=== PATIENT | male | born 1990 | race Caucasian/White ===

== ENCOUNTER 2017-04-16 05:33 | Inpatient (IN) | payer SELFPAY ==
[~2017-04-16 05:33] MED LIST: ceFAZolin SODIUM 1 GM VIAL IVPB ONE
--- NOTE | 2017-04-16 05:48 | PDOC ---
History of Present Illness - General History Source: Patient Exam Limitations: No Limitations - History of Present Illness Initial Comments: 04/16/17 05:56 The patient is a 26 year old male with a significant past medical history of constipation who presents to the ED with complaints of diarrhea, abdominal pain , and constipation. Patient reports multiple episodes of diarrhea 2 days ago when he left from work. He states he began to develop right upper and right lower quadrant pain that is worsened when laying down. Patient states he is unable to eat secondary to his abdominal pain. Patient states his diarrhea subsided and now he reports constipation, more than his baseline. He also reports chills and generalized malaise with present symptoms. Denies fevers or chills.Denies chest pain or shortness of breath. Denies dysuria or changes in urinary output. Denies any other symptoms. <Brandy Ribera - Last Filed: 04/16/17 05:56> <Britni Bui - Last Filed: 04/16/17 11:00> <Rosio Leslie - Last Filed: 04/16/17 11:38> - General History Source: Patient Exam Limitations: No Limitations <Malcolm Greenwood - Last Filed: 04/16/17 19:54> - General Chief Complaint: Pain Stated Complaint: ABD PAIN,CONSTIPATION Time Seen by Provider: 04/16/17 05:46 Past History <Brandy Ribera - Last Filed: 04/16/17 05:56> <Britni Bui - Last Filed: 04/16/17 11:00> <Rosio Leslie - Last Filed: 04/16/17 11:38> - Psycho/Social/Smoking Cessation Hx Suicidal Ideation: No Smoking History: Never smoked Have you smoked in the past 12 months: No Information on smoking cessation initiated: No Hx Alcohol Use: No Drug/Substance Use Hx: No <Malcolm Greenwood - Last Filed: 04/16/17 19:54> - Past Medical History Allergies/Adverse Reactions: Allergies Allergy/AdvReac Type Severity Reaction Status Date / Time No Known Allergies Allergy Verified 04/16/17 05:45 Home Medications: Ambulatory Orders NK [No Known Home Medication] 04/16/17 Review of Systems - Review of Systems Able to Perform ROS?: Yes Comments:: 04/16/17 05:56 CONSTITUTIONAL: No reported: Fever, Chills, Diaphoresis, Generalized Weakness, Malaise, Loss of Appetite HEENT: No reported: Rhinorrhea, Nasal Congestion, Throat Pain, Throat Swelling, Difficulty Swallowing, Mouth Swelling, Ear Pain, Eye Pain, Visual Changes CARDIOVASCULAR: No reported: Chest Pain, Syncope, Palpitations, Irregular Heart Rate, Lightheadedness, Peripheral Edema RESPIRATORY: No reported: Cough, Shortness of Breath, SOB with Exertion, Orthopnea, Wheezing , Stridor, Hemoptysis GASTROINTESTINAL:+ diarrhea, abdominal pain, constipation No reported: Abdominal Distension, Nausea, Vomiting,, Melena, Hematochezia GENITOURINARY: No reported: Dysuria, Frequency, Urgency, Hesitancy, Flank Pain, Genital Pain MUSCULOSKELETAL: No reported: Myalgia, Arthralgia, Joint Swelling, Back pain, Neck Pain SKIN: No reported: Rash, Itching, Pallor HEMEATOLOGIC/IMMUNOLOGIC: No reported: Easy Bleeding, Easy Bruising, Lymphadenopathy, Frequent infections ENDOCRINE: No reported: Unexplained Weight Gain, Unexplained Weight Loss, Heat Intolerance , Cold Intolerance NEUROLOGIC: No reported: Headache, Focal Weakness, Paresthesias, Vertigo, Lightheadedness, Unsteady Gait, Seizure, Mental Status Changes, Incontinence PSYCHIATRIC: No reported: Anxiety, Depression All Other Systems: Reviewed and Negative <Brandy Ribera - Last Filed: 04/16/17 05:56> *Physical Exam - Vital Signs Last Vital Signs Temp Pulse Resp BP Pulse Ox 98.5 F 66 14 154/106 99 04/16/17 05:45 04/16/17 05:45 04/16/17 05:45 04/16/17 05:45 04/16/17 05:45 - Physical Exam Comments: 04/16/17 05:56 GENERAL:+ moderate distress Well developed, well nourished. Awake and alert. HEENT: Normocephalic, atraumatic. PERRLA, EOMI. No conjunctival pallor. Sclera are non- icteric. Moist mucous membranes. Oropharynx is clear. NECK: Supple. Full ROM. No JVD. Carotid pulses 2+ and symmetric, without bruits. No thyromegaly. No lymphadenopathy. CARDIOVASCULAR: Regular rate and rhythm. No murmurs, rubs, or gallops. Distal pulses are 2+ and symmetric. PULMONARY: No evidence of respiratory distress. Lungs clear to auscultation bilaterally. No wheezing, rales or rhonchi. ABDOMINAL:+ tender in the right upper and lower quadrant. Soft. Non-distended. No rebound or guarding. No organomegaly. Normoactive bowel sounds. MUSCULOSKELETAL Normal range of motion at all joints. No bony deformities or tenderness. No CVA tenderness. EXTREMITIES: No cyanosis. No clubbing. No edema. No calf tenderness. SKIN: Warm and dry. Normal capillary refill. No rashes. No jaundice. NEUROLOGICAL: Alert, awake, appropriate. Cranial nerves 2-12 intact. No deficits to light touch and temperature in face, upper extremities and lower extremities. No motor deficits in the in face, upper extremities and lower extremities. Normoreflexic in the upper and lower extremities. Normal speech. Toes are down- going bilaterally. Gait is normal without ataxia. PSYCHIATRIC: Cooperative. Good eye contact. Appropriate mood and affect. <Brandy Ribera - Last Filed: 04/16/17 05:56> - Vital Signs Last Vital Signs Temp Pulse Resp BP Pulse Ox 98.5 F 66 14 154/106 99 04/16/17 05:45 04/16/17 05:45 04/16/17 05:45 04/16/17 05:45 04/16/17 06:30 <Britni Bui - Last Filed: 04/16/17 11:00> - Vital Signs Last Vital Signs Temp Pulse Resp BP Pulse Ox 98.5 F 66 14 154/106 99 04/16/17 05:45 04/16/17 05:45 04/16/17 05:45 04/16/17 05:45 04/16/17 06:30 <Rosio Leslie - Last Filed: 04/16/17 11:38> - Vital Signs Last Vital Signs Temp Pulse Resp BP Pulse Ox 98.5 F 66 14 154/106 99 04/16/17 05:45 04/16/17 05:45 04/16/17 05:45 04/16/17 05:45 04/16/17 05:45 <Malcolm Greenwood - Last Filed: 04/16/17 19:54> ED Treatment Course - LABORATORY CBC & Chemistry Diagram: 04/16/17 06:00 04/16/17 06:00 - ADDITIONAL ORDERS Additional order review: Laboratory Results 04/16/17 04/16/17 04/16/17 07:15 06:00 06:00 INR 1.00 Sodium 140 Potassium 3.6 Chloride 103 Carbon Dioxide 27 Anion Gap 10 BUN 10 Creatinine 0.9 Creat Clearance w eGFR > 60 Random Glucose 139 H Calcium 9.1 Magnesium 2.1 Total Bilirubin 1.2 H AST 18 ALT 41 Alkaline Phosphatase 79 Total Protein 7.5 Albumin 4.4 Total Amylase 53 Lipase 110 Urine Color Yellow Urine Appearance Clear Urine pH 5.0 Urine Protein Negative Urine Glucose (UA) Negative Urine Ketones 2+ H Urine Blood Negative Urine Nitrite Negative Urine Bilirubin Negative Urine Urobilinogen Negative Ur Leukocyte Esterase Negative 04/16/17 06:00 RBC 5.42 MCV 91.4 MCHC 34.6 RDW 12.3 MPV 8.8 Neutrophils % 88.1 H Lymphocytes % 7.6 L Monocytes % 3.9 Eosinophils % 0.1 Basophils % 0.3 - RADIOLOGY Radiograph Interpretation: 04/16/17 11:04 CT w/out contrast - Abdomen & pelvis Impression: Findings consistent with acute appendicitis without abscess formation. There is no evidence of small bowel obstruction. Reported by: Dr. Emeka Mendoza Case discussed with Dr. Rosales. - Medications Given in the ED: ED Medications Discontinued Medications Generic Name Dose Route Start Last Admin Trade Name Freq PRN Reason Stop Dose Admin Sodium Chloride 1,000 mls @ 1,000 mls/hr 04/16/17 05:49 04/16/17 06:22 Normal Saline - IV 04/16/17 06:48 1,000 mls/hr ASDIR STA Administration Pantoprazole Sodium 40 mg/ 100 mls @ 200 mls/hr 04/16/17 05:49 04/16/17 06:22 Sodium Chloride IVPB 04/16/17 06:18 200 mls/hr ONCE ONE Administration Ketorolac Tromethamine 30 mg 04/16/17 05:49 04/16/17 06:22 Toradol Injection - IVPUSH 04/16/17 05:50 30 mg ONCE ONE Administration Morphine Sulfate 2 mg 04/16/17 06:36 04/16/17 06:46 Morphine Injection - IVPUSH 04/16/17 06:37 2 mg ONCE ONE Administration Ondansetron HCl 4 mg 04/16/17 05:49 04/16/17 06:23 Zofran Injection IVPUSH 04/16/17 05:50 4 mg ONCE STA Administration Ondansetron HCl 4 mg 04/16/17 06:36 04/16/17 06:46 Zofran Injection IVPUSH 04/16/17 06:37 4 mg ONCE STA Administration <HaoBritni - Last Filed: 04/16/17 11:00> - LABORATORY CBC & Chemistry Diagram: 04/16/17 06:00 04/16/17 06:00 - ADDITIONAL ORDERS Additional order review: Laboratory Results 04/16/17 04/16/17 04/16/17 07:15 06:00 06:00 INR 1.00 Sodium 140 Potassium 3.6 Chloride 103 Carbon Dioxide 27 Anion Gap 10 BUN 10 Creatinine 0.9 Creat Clearance w eGFR > 60 Random Glucose 139 H Calcium 9.1 Magnesium 2.1 Total Bilirubin 1.2 H AST 18 ALT 41 Alkaline Phosphatase 79 Total Protein 7.5 Albumin 4.4 Total Amylase 53 Lipase 110 Urine Color Yellow Urine Appearance Clear Urine pH 5.0 Ur Specific [place] 1.025 Urine Protein Negative Urine Glucose (UA) Negative Urine Ketones 2+ H Urine Blood Negative Urine Nitrite Negative Urine Bilirubin Negative Urine Urobilinogen Negative Ur Leukocyte Esterase Negative 04/16/17 06:00 RBC 5.42 MCV 91.4 MCHC 34.6 RDW 12.3 MPV 8.8 Neutrophils % 88.1 H Lymphocytes % 7.6 L Monocytes % 3.9 Eosinophils % 0.1 Basophils % 0.3 - Medications Given in the ED: ED Medications Discontinued Medications Generic Name Dose Route Start Last Admin Trade Name Iliaq PRN Reason Stop Dose Admin Sodium Chloride 1,000 mls @ 1,000 mls/hr 04/16/17 05:49 04/16/17 06:22 Normal Saline - IV 04/16/17 06:48 1,000 mls/hr ASDIR STA Administration Pantoprazole Sodium 40 mg/ 100 mls @ 200 mls/hr 04/16/17 05:49 04/16/17 06:22 Sodium Chloride IVPB 04/16/17 06:18 200 mls/hr ONCE ONE Administration Ketorolac Tromethamine 30 mg 04/16/17 05:49 04/16/17 06:22 Toradol Injection - IVPUSH 04/16/17 05:50 30 mg ONCE ONE Administration Morphine Sulfate 2 mg 04/16/17 06:36 04/16/17 06:46 Morphine Injection - IVPUSH 04/16/17 06:37 2 mg ONCE ONE Administration Ondansetron HCl 4 mg 04/16/17 05:49 04/16/17 06:23 Zofran Injection IVPUSH 04/16/17 05:50 4 mg ONCE STA Administration Ondansetron HCl 4 mg 04/16/17 06:36 04/16/17 06:46 Zofran Injection IVPUSH 04/16/17 06:37 4 mg ONCE STA Administration <Rosio Leslie - Last Filed: 04/16/17 11:38> - LABORATORY CBC & Chemistry Diagram: 04/16/17 06:00 04/16/17 06:00 <Malcolm Greenwood - Last Filed: 04/16/17 19:54> Medical Decision Making - Medical Decision Making 04/16/17 19:54 Dr. Greenwood: The scribe's documentation has been prepared under my direction and personally reviewed by me in its entirery. I confirm that the note above accurately reflects all work, treatment, procedures, and medical decision making performed by me. <Malcolm Greenwood - Last Filed: 04/16/17 19:54> *DC/Admit/Observation/Transfer - Attestations Scribe Attestion: 04/16/17 05:56 Documentation prepared by Brandy Ribera, acting as medical records custodian for Malcolm Greenwood MD <Brandy Ribera - Last Filed: 04/16/17 05:56> <Britni Bui - Last Filed: 04/16/17 11:00> - Discharge Dispostion Decision to Admit order Date/Time: Decision to Admit Order Category Date Time Status Decision to Admit to Hospital Routine Admission 04/16/17 11:26 Active - Attestations Physician Attestion: 04/16/17 11:39 I, Dr. Rosio Leslie MD, attest that this document has been prepared under my direction and personally reviewed by me in its entirety. I further attest, that it accurately reflects all work, treatment, procedures and medical decision -making performed by me. <Rosio Leslie - Last Filed: 04/16/17 11:38> <Malcolm Greenwood - Last Filed: 04/16/17 19:54> Diagnosis at time of Disposition: Appendicitis Qualifiers: Appendicitis type: acute appendicitis Acute appendicitis type: other Qualified Code(s): K35.89 - Other acute appendicitis - Discharge Dispostion Condition at time of disposition: Good
[2017-04-16] MEDS ORDERED: KETOROLAC TROMETHAMINE 30 MG/1 ML VIAL IVPUSH ONE (05:49)
[2017-04-16] MEDS ORDERED: PANTOPRAZOLE SODIUM 40 MG in SODIUM CHLORIDE 100 ML IVPB ONE (05:49)
[2017-04-16] MEDS ORDERED: ONDANSETRON 4 MG/2 ML VIAL IVPUSH STA ×2 (05:49→06:36)
[2017-04-16] MEDS ORDERED: SODIUM CHLORIDE 1,000 ML IV STA (05:49)
[2017-04-16] MEDS ORDERED: ONDANSETRON 4 MG/2 ML VIAL ONE ×3 (06:03→11:36)
[2017-04-16] MEDS ORDERED: PANTOPRAZOLE SODIUM 100 ML IVPB ONE (06:03)
[2017-04-16] MEDS ORDERED: KETOROLAC TROMETHAMINE 30 MG/1 ML VIAL ONE ×2 (06:03→15:19)
[2017-04-16 06:12] LABS: BASOPHIL 0.3 % (0-2.0); EOSINOPHIL 0.1 % (0-4.5); MCH 31.6 pg (25.7-33.7); MCHC 34.6 g/dl (32.0-35.9); MEAN CELL VOLUME 91.4 fl (80-96); MEAN PLT VOLUME 8.8 fl (7.5-11.1); NEUTROPHILS 88.1 % (42.8-82.8); PLATELET COUNT 205 K/MM3 (134-434); RDW 12.3 % (11.9-15.9)
[2017-04-16 06:33] LABS: ALBUMIN 4.4 g/dl (3.4-5.0); AMYLASE 53 U/L (25-115); ANION GAP 10 (8-16); BILIRUBIN,TOTAL 1.2 mg/dL (0.2-1.0); CALCIUM 9.1 mg/dL (8.5-10.1); CO2 27 mmol/L (21-32); CREATININE 0.9 mg/dL (0.7-1.3); GLUCOSE,RANDOM 139 mg/dL (74-106); MAGNESIUM 2.1 mg/dL (1.8-2.4); SGOT/AST 18 U/L (15-37); SGPT/ALT 41 U/L (12-78); TOT PROT 7.5 g/dl (6.4-8.2)
[2017-04-16 06:34] LABS: ALK PHOS 79 U/L (45-117)
[2017-04-16] MEDS ORDERED: morphine CARPU-JECT 2 MG/1 ML DISP.SYRIN IVPUSH ONE (06:36)
[2017-04-16] MEDS ORDERED: morphine CARPU-JECT 4 MG/1 ML DISP.SYRIN ONE ×2 (06:38→11:35)
[2017-04-16 07:37] LABS: URINE APPEARANCE CLEAR; URINE BILIRUBIN NEGATIVE (NEGATIVE); URINE BLOOD NEGATIVE (NEGATIVE); URINE COLOR YELLOW; URINE GLUCOSE (UA) NEGATIVE (NEGATIVE); URINE KETONE 2+ (NEGATIVE); URINE LEUK ESTERASE NEGATIVE (NEGATIVE); URINE NITRITE NEGATIVE (NEGATIVE); URINE PROTEIN NEGATIVE (NEGATIVE); URINE UROBILINOGEN NEGATIVE mg/dL (0.2-1.0)
[2017-04-16] MEDS ORDERED: PIPERACILLIN/TAZOB 4.5 GM/100 ML PRE-DOCKED IVPB ONE ×2 (10:58→13:42)
[2017-04-16] MEDS ORDERED: morphine CARPU-JECT 4 MG/1 ML DISP.SYRIN IVPUSH ONE (10:58)
[2017-04-16] MEDS ORDERED: ONDANSETRON 4 MG/2 ML VIAL IVPUSH ONE (10:59)
[2017-04-16] MEDS ORDERED: SODIUM CHLORIDE 0.9% 500 ML INFUS.BAG IV ONE (11:06)
--- NOTE | 2017-04-16 11:26 | PDOC ---
*Physical Exam - Vital Signs Last Vital Signs Temp Pulse Resp BP Pulse Ox 98.5 F 66 14 154/106 99 04/16/17 05:45 04/16/17 05:45 04/16/17 05:45 04/16/17 05:45 04/16/17 06:30 ED Treatment Course - LABORATORY CBC & Chemistry Diagram: 04/16/17 06:00 04/16/17 06:00 - ADDITIONAL ORDERS Additional order review: Laboratory Results 04/16/17 04/16/17 04/16/17 07:15 06:00 06:00 INR 1.00 Sodium 140 Potassium 3.6 Chloride 103 Carbon Dioxide 27 Anion Gap 10 BUN 10 Creatinine 0.9 Creat Clearance w eGFR > 60 Random Glucose 139 H Calcium 9.1 Magnesium 2.1 Total Bilirubin 1.2 H AST 18 ALT 41 Alkaline Phosphatase 79 Total Protein 7.5 Albumin 4.4 Total Amylase 53 Lipase 110 Urine Color Yellow Urine Appearance Clear Urine pH 5.0 Ur Specific [place] 1.025 Urine Protein Negative Urine Glucose (UA) Negative Urine Ketones 2+ H Urine Blood Negative Urine Nitrite Negative Urine Bilirubin Negative Urine Urobilinogen Negative Ur Leukocyte Esterase Negative 04/16/17 06:00 RBC 5.42 MCV 91.4 MCHC 34.6 RDW 12.3 MPV 8.8 Neutrophils % 88.1 H Lymphocytes % 7.6 L Monocytes % 3.9 Eosinophils % 0.1 Basophils % 0.3 - Medications Given in the ED: ED Medications Discontinued Medications Generic Name Dose Route Start Last Admin Trade Name Freq PRN Reason Stop Dose Admin Sodium Chloride 1,000 mls @ 1,000 mls/hr 04/16/17 05:49 04/16/17 06:22 Normal Saline - IV 04/16/17 06:48 1,000 mls/hr ASDIR STA Administration Pantoprazole Sodium 40 mg/ 100 mls @ 200 mls/hr 04/16/17 05:49 04/16/17 06:22 Sodium Chloride IVPB 04/16/17 06:18 200 mls/hr ONCE ONE Administration Ketorolac Tromethamine 30 mg 04/16/17 05:49 04/16/17 06:22 Toradol Injection - IVPUSH 04/16/17 05:50 30 mg ONCE ONE Administration Morphine Sulfate 2 mg 04/16/17 06:36 04/16/17 06:46 Morphine Injection - IVPUSH 04/16/17 06:37 2 mg ONCE ONE Administration Ondansetron HCl 4 mg 04/16/17 05:49 04/16/17 06:23 Zofran Injection IVPUSH 04/16/17 05:50 4 mg ONCE STA Administration Ondansetron HCl 4 mg 04/16/17 06:36 04/16/17 06:46 Zofran Injection IVPUSH 04/16/17 06:37 4 mg ONCE STA Administration Medical Decision Making - Medical Decision Making 04/16/17 11:23 Patient signed out to me by overnight Dr. Greenwood pending CT scan of the abdomen for abdominal pain. CT scan with acute uncomplicated appendicitis. I spoke with Dr. Michaud from surgery who will likely take the patient to the OR today. I also ordered a dose of Zosyn and fluids. Patient is NPO. I discussed the CT scan findings with the patient and the likelihood that he would go to the operating room today for this finding. I answered all his questions. I also ordered another round of pain medications and antiemetics given his recurring pain and nausea. Pt admitted to the hospitalist *DC/Admit/Observation/Transfer Diagnosis at time of Disposition: Appendicitis Qualifiers: Appendicitis type: acute appendicitis Acute appendicitis type: other Qualified Code(s): K35.89 - Other acute appendicitis - Discharge Dispostion Condition at time of disposition: Stable Admit: Yes - Attestations Physician Attestion: 04/16/17 11:26 I, Dr. Rosio Leslie MD, attest that this document has been prepared under my direction and personally reviewed by me in its entirety. I further attest, that it accurately reflects all work, treatment, procedures and medical decision -making performed by me.
[2017-04-16] MEDS ORDERED: PIPERACILLIN/TAZOB 4.5 GM 100 ML IVPB ONE (11:35)
[2017-04-16] MEDS ORDERED: morphine CARPU-JECT 4 MG/1 ML DISP.SYRIN IVPUSH PRN ×4 (12:03→16:37)
[2017-04-16] MEDS ORDERED: ONDANSETRON 4 MG/2 ML VIAL IVPB PRN ×2 (12:04→16:37)
[2017-04-16] MEDS ORDERED: SODIUM CHLORIDE 1,000 ML IV SCH (12:15)
--- NOTE | 2017-04-16 12:47 | HP ---
Admitting History and Physical - Admission Chief Complaint: RLQ pain, vomiting History of Present Illness: 26yo healthy M began experiencing generalized abdominal discomfort 2 days ago with diarrhea and thought it was a virus. Stayed home from work yesterday because he wasn't feeling better. Hungry last night but ate lightly (cold cut sandwich and chicken soup), but after dinner began having significant RLQ pain and vomiting. That was his last PO; multiple episodes of emesis overnight, ultimately prompting ER visit. He had subjective fever/chills yest into last night. Stools were initially loose, then stopped yesterday. Feels like he has gas and cannot get it out. Pain has been significant, mainly RLQ and into groin/ pelvic area. He still has some nausea. In ER, wbc is 16, he is afebrile but hypertensive. CT shows enlarged, inflamed appendix down into pelvis without abscess or free air. He is admitted 23H for acute appendicitis with localized peritonitis. He is agreeable to surgery. ER has given fluids and pain meds. Antibiotic will be given in OR. History Source: Patient Limitations to Obtaining History: No Limitations - Past Medical History Additional Past Medical History: NONE - Past Surgical History Past Surgical History: Yes: Hernia Repair (as baby) - Smoking History Smoking history: Current some day smoker Have you smoked in the past 12 months: Yes Aproximately how many cigarettes per day: 0 (smokes on weekends when he drinks) - Alcohol/Substance Use Hx Alcohol Use: Yes (weekends, usually one day, 4-5 drinks) Number of Drinks Daily: 1 History of Substance Use: reports: Marijuana Date of Last Use: 04/15/17 (daily MJ) Home Medications - Allergies Allergies/Adverse Reactions: Allergies Allergy/AdvReac Type Severity Reaction Status Date / Time No Known Allergies Allergy Verified 04/16/17 05:45 - Home Medications Home Medications: Ambulatory Orders NK [No Known Home Medication] 04/16/17 Family Disease History - Family Disease History Family History: Unremarkable Review of Systems - Review of Systems Constitutional: reports: Chills, Fever Eyes: denies: Blurred Vision, Recent Change in Vision HENT: denies: Difficult Swallowing, Nasal Congestion, Throat Pain Neck: denies: Swollen Glands, Tenderness Cardiovascular: denies: Chest Pain, Palpitations Respiratory: denies: Cough, SOB Gastrointestinal: reports: Abdominal Pain (with hpi), Constipation (last day), Diarrhea (2d ago), Nausea (with hpi), Vomiting (with hpi) Genitourinary: denies: Burning, Dysuria Musculoskeletal: reports: Back Pain (upper, 2-3 years since work incident). denies: Joint Pain Integumentary: denies: Change in Color, Rash Neurological: denies: Dizziness, Headache Physical Examination Vital Signs: Vital Signs Temperature 98.5 F 04/16/17 05:45 Pulse Rate 66 04/16/17 05:45 Respiratory Rate 14 04/16/17 05:45 Blood Pressure 154/106 04/16/17 05:45 O2 Sat by Pulse Oximetry (%) 99 04/16/17 06:30 Constitutional: Yes: Well Nourished, Calm, Mild Distress (secondary to pain) Eyes: Yes: Conjunctiva Clear, EOM Intact HENT: Yes: Atraumatic, Normocephalic Cardiovascular: Yes: Tachycardia (mild). No: Pulse Irregular Respiratory: Yes: Regular, CTA Bilaterally Gastrointestinal: Yes: Normal Bowel Sounds, Soft, Tenderness (mainly RLQ/ suprapubic, also RUQ, LLQ with referred tenderness to RLQ/suprapubic areas, some voluntary guarding in RLQ, no rebound). No: Distention ...Rectal Exam: Yes: Deferred Renal/: No: CVA Tenderness - Left, CVA Tenderness - Right Musculoskeletal: No: Joint Stiffness, Joint Swelling Extremities: No: Cool, Cyanosis Edema: No Peripheral Pulses WNL: Yes Integumentary: No: Jaundice, Rash Neurological: Yes: Alert, Oriented. No: Unsteady Gait Psychiatric: Yes: Alert, Oriented Labs: CBC, BMP 04/16/17 06:00 04/16/17 06:00 CMP Sodium 140 mmol/L (136-145) 04/16/17 06:00 Potassium 3.6 mmol/L (3.5-5.1) 04/16/17 06:00 Chloride 103 mmol/L (98-107) 04/16/17 06:00 Carbon Dioxide 27 mmol/L (21-32) 04/16/17 06:00 Anion Gap 10 (8-16) 04/16/17 06:00 BUN 10 mg/dL (7-18) 04/16/17 06:00 Creatinine 0.9 mg/dL (0.7-1.3) 04/16/17 06:00 Creat Clearance w eGFR > 60 (>60) 04/16/17 06:00 Random Glucose 139 mg/dL (74-106) H 04/16/17 06:00 Calcium 9.1 mg/dL (8.5-10.1) 04/16/17 06:00 Magnesium 2.1 mg/dL (1.8-2.4) 04/16/17 06:00 Total Bilirubin 1.2 mg/dL (0.2-1.0) H 04/16/17 06:00 AST 18 U/L (15-37) 04/16/17 06:00 ALT 41 U/L (12-78) 04/16/17 06:00 Alkaline Phosphatase 79 U/L (45-117) 04/16/17 06:00 Total Protein 7.5 g/dl (6.4-8.2) 04/16/17 06:00 Albumin 4.4 g/dl (3.4-5.0) 04/16/17 06:00 Total Amylase 53 U/L (25-115) 04/16/17 06:00 Lipase 110 U/L (73-393) 04/16/17 06:00 Urine Test Results Urine Color Yellow 04/16/17 07:15 Urine Appearance Clear 04/16/17 07:15 Urine pH 5.0 (5.0-8.0) 04/16/17 07:15 Ur Specific [place] 1.025 (1.005-1.025) 04/16/17 07:15 Urine Protein Negative (NEGATIVE) 04/16/17 07:15 Urine Glucose (UA) Negative (NEGATIVE) 04/16/17 07:15 Urine Ketones 2+ (NEGATIVE) H 04/16/17 07:15 Urine Blood Negative (NEGATIVE) 04/16/17 07:15 Urine Nitrite Negative (NEGATIVE) 04/16/17 07:15 Urine Bilirubin Negative (NEGATIVE) 04/16/17 07:15 Ur Leukocyte Esterase Negative (NEGATIVE) 04/16/17 07:15 Imaging - Results Cat Scan: Report Reviewed (acute appendicitis), Image Reviewed Problem List - Problems (1) Acute appendicitis with localized peritonitis Assessment/Plan: admitted 23H/obs NPO/IVF to OR for lap poss open appendectomy - discussed R/B/A of same with patient including but not limited to bleeding, infection, injury to intraabdominal structures, staple-line leak, intraabdominal abscess; alternatives including antibiotics, no surgery, risk of sepsis and need for surgery - pt wishes to proceed with operation perioperative antibiotics DVT prophylaxis anticipate resuming po postop prn pain meds - anticipate alternating Tylenol with ibuprofen, possible Tyl/ narcotic combo for breakthrough informed consent signed and on chart Code(s): K35.3 - ACUTE APPENDICITIS WITH LOCALIZED PERITONITIS
[2017-04-16] MEDS ORDERED: LIDOCAINE HCL 1%, 10 MG/ML (20ML VIAL) ONE (12:56)
[2017-04-16] MEDS ORDERED: BUPIVACAINE HCL/PF 0.5% (5MG/ML) 10 ML VIAL ONE (12:56)
[2017-04-16] MEDS ORDERED: LIDOCAINE HCL/PF 2% SDV 5ML VIAL ONE (13:40)
[2017-04-16] MEDS ORDERED: PROPOFOL 20 ML ONE (13:40)
[2017-04-16] MEDS ORDERED: SUCCINYLCHOLINE CHLORIDE 200 MG/10 ML VIAL ONE (13:41)
[2017-04-16] MEDS ORDERED: BUPIVACAINE HCL/PF 0.5% (5MG/ML) 10 ML VIAL IJ ONE ×2 (14:19→15:26)
[2017-04-16 14:35] VITALS: BMI 28.5
[2017-04-16] MEDS ORDERED: DEXAMETHASONE SOD PHOSPHATE 4 MG/1 ML VIAL ONE (15:19)
[2017-04-16] MEDS ORDERED: MIDAZOLAM HCL 2 MG/2 ML SINGLE DOSE VIAL ONE (15:19)
[2017-04-16] MEDS ORDERED: NEOSTIGMINE METHYLSULFATE 0.5 MG/ML - 10 ML MDV ONE (15:19)
[2017-04-16] MEDS ORDERED: GLYCOPYRROLATE 0.2 MG/1 ML VIAL ONE ×2 (15:19→15:20)
[2017-04-16] MEDS ORDERED: ACETAMINOPHEN 1000 MG/100 ML VIAL (NON FORMULARY) IVPB ONE (15:50)
[2017-04-16] MEDS ORDERED: ACETAMINOPHEN INJECTION 100 ML IVPB ONE (15:51)
[2017-04-16] MEDS ORDERED: LACTATED RINGERS SOLUTION 1,000 ML IV SCH (16:00)
--- NOTE | 2017-04-16 16:24 | OP ---
Operative Note - Note: Operative Date: 04/16/17 Pre-Operative Diagnosis: acute appendicitis with localized peritonitis Operation: laparoscopic appendectomy Findings: enlarged, inflamed appendix Post-Operative Diagnosis: Same as Pre-op Surgeon: Chace Rosales Anesthesiologist/QUALITY ASSURANCE TEST PROGRAM MANAGER: Ras Perez Anesthesia: General, Local (20ml 0.5% marcaine) Specimens Removed: appendix to pathology Estimated Blood Loss (mls): 5 Drains & Tubes with Location: Lr removed at end of case Drains, Volume Out (mls): 200 (UOP) Fluid Volume Replaced (mls): 1,500 (crystalloid) Operative Report Dictated: Yes
[2017-04-16] MEDS: LACTATED RINGERS SOLUTION 1,000 ML IV SCH (16:45)
[2017-04-16] MEDS ORDERED: oxyCODONE HCL 5 MG TABLET PO PRN (17:04)
[2017-04-16] MEDS ORDERED: ACETAMINOPHEN 325 MG TABLET (FP) PO PRN ×2 (17:04→22:00)
[2017-04-16] MEDS ORDERED: IBUPROFEN 600 MG TABLET (FP) PO PRN (19:00)
[2017-04-16] MEDS ORDERED: PIPERACILLIN/TAZOBACTAM 4.5 GM VIAL IVPB ONE (20:30)
[2017-04-16] MEDS ORDERED: DEXTROSE 5%-WATER 100 ML IVPB ONE (20:30)
[2017-04-16] MEDS: DOCUSATE SODIUM 100 MG CAPSULE (FP) PO SCH (21:27)
[2017-04-16] MEDS ORDERED: PIPERACILLIN/TAZOB 4.5 GM 4.5 GM in DEXTROSE 5%-WATER - 100 ML IVPB ONE (22:00)
[2017-04-16] MEDS ORDERED: DOCUSATE SODIUM 100 MG CAPSULE (FP) PO SCH (22:00)
[2017-04-16] MEDS ORDERED: PIPERACILLIN/TAZOB 4.5 GM 4.5 GM in DEXTROSE 5%-WATER 100 ML IVPB ONE (22:00)
[2017-04-17] MEDS: LACTATED RINGERS SOLUTION 1,000 ML IV SCH (00:20)
[2017-04-17] MEDS: IBUPROFEN 600 MG TABLET (FP) PO PRN ×2 (10:02→17:08)
[2017-04-17] MEDS: ACETAMINOPHEN 325 MG TABLET (FP) PO PRN (10:02)
[2017-04-17] MEDS: DOCUSATE SODIUM 100 MG CAPSULE (FP) PO SCH ×2 (10:02→21:58)
--- NOTE | 2017-04-17 10:46 | PN ---
Progress Note, Physician Chief Complaint: RLQ pain History of Present Illness: POD1 s/p lap appendectomy, feeling better than on admission. Seen and examined in bed. RLQ pain is gone, now with some incisional pain and LLQ pain. Passing flatus but no BM yet. Tolerating regular diet, fluids off. No nausea. Ambulating , voiding. On oral pain meds. Right now, does not feel great, feverish and with some LLQ discomfort, but just had pain meds. Spiked temp of 101.7 an hour ago. Using IS with good effort (1750 consistently). - Current Medication List Current Medications: Active Medications Acetaminophen (Tylenol -) 650 mg PO Q6H PRN PRN Reason: FEVER OR PAIN Last Admin: 04/17/17 10:02 Dose: 650 mg Acetaminophen (Tylenol -) 325 mg PO Q6H PRN PRN Reason: FEVER OR PAIN Docusate Sodium (Colace -) 100 mg PO BID NITISH Last Admin: 04/17/17 10:02 Dose: 100 mg Ibuprofen (Motrin -) 600 mg PO Q6H PRN PRN Reason: PAIN Last Admin: 04/17/17 10:02 Dose: 600 mg Ondansetron HCl (Zofran Injection) 4 mg IVPB Q4H PRN PRN Reason: NAUSEA AND/OR VOMITING Last Admin: 04/16/17 18:35 Dose: 4 mg Oxycodone HCl (Roxicodone -) 5 mg PO Q6H PRN Last Admin: 04/16/17 22:32 Dose: 5 mg - Objective Vital Signs: Vital Signs Temperature 98.4 F 04/17/17 06:15 Pulse Rate 105 H 04/17/17 06:15 Respiratory Rate 18 04/17/17 06:15 Blood Pressure 110/61 04/17/17 06:15 O2 Sat by Pulse Oximetry (%) 96 04/16/17 21:00 Last Vital Signs Temp Pulse Resp BP Pulse Ox 101.7 F H 109 H 20 139/93 96 04/17/17 09:40 04/17/17 09:40 04/17/17 09:40 04/17/17 09:40 04/16/17 21:00 Constitutional: Yes: Well Nourished, No Distress, Calm, Other (warm) Cardiovascular: Yes: Tachycardia. No: Pulse Irregular Respiratory: Yes: Regular, CTA Bilaterally Gastrointestinal: Yes: Normal Bowel Sounds, Soft, Distention (mild), Tenderness (mild LLQ and incisional, no R/G) Extremities: Yes: Other (warm). No: Cyanosis Integumentary: Yes: Incision (x3). No: Rash Wound/Incision: Yes: Steri Strips (under dressings), Dressing Dry and Intact (x3 , clean, no staining) Neurological: Yes: Alert, Oriented Labs: no new labs Problem List - Problems (1) Acute appendicitis with localized peritonitis Assessment/Plan: POD1 s/p lap appy doing well overall ambulating, voiding, tolerating diet, on oral pain meds spiked temp less than 24H postop will keep until 24H afebrile (<101) - convert to inpatient admission just got Tylenol if spikes again >101, will get blood cultures, CXR and restart abx will repeat cbc in am otherwise encouraged OOB/ambulation/IS/pulmonary toilet Code(s): K35.3 - ACUTE APPENDICITIS WITH LOCALIZED PERITONITIS
[2017-04-17] MEDS ORDERED: ONDANSETRON *ODT* 4 MG TABLET SL PRN (17:04)
[2017-04-17] MEDS ORDERED: PT OWN MED DRAWER 7, Y5N ONE (22:38)
[2017-04-18] MEDS: ACETAMINOPHEN 325 MG TABLET (FP) PO PRN (00:08)
[2017-04-18 08:23] VITALS: BP 127/74; PULSE 85; TEMP 97.9
--- NOTE | 2017-04-18 09:44 | DS ---
Physical Examination Vital Signs: Vital Signs Temperature 97.9 F 04/18/17 08:15 Pulse Rate 85 04/18/17 08:15 Respiratory Rate 18 04/18/17 08:15 Blood Pressure 127/74 04/18/17 08:15 O2 Sat by Pulse Oximetry (%) 99 04/17/17 21:00 temp has been normal since spike just over 24H ago Findings/Remarks: Pt seen and examined in room, eating breakfast. C/O some heartburn and mild nausea this am on waking up. Had loose BM this am. Used Tylenol once today since yesterday. Pain is minimal. No fevers since yesterday morning's spike. Ambulating and using IS. Time spent on discharge: 35 minutes Constitutional: Yes: Well Nourished, No Distress, Calm Cardiovascular: Yes: Regular Rate and Rhythm. No: Murmur Respiratory: Yes: Regular, CTA Bilaterally Gastrointestinal: Yes: Normal Bowel Sounds, Soft, Tenderness (mild RLQ ("feels like gas"), mild incisional, no R/G). No: Distention Extremities: Yes: Other (peripheral IV out). No: Cool, Cyanosis Integumentary: Yes: Incision (x3), Other (small superficial open skin spot from tegaderm at LLQ site laterally) Wound/Incision: Yes: Well Approximated, Steri Strips (c/d/i, left open to air), Dressing Dry and Intact (x3), Dressing Removed (x3), Other (small superficial denuded skin spot lateral to LLQ site). No: Reddened Neurological: Yes: Alert, Oriented Discharge Summary Reason For Visit: acute appendicitis with localized peritonitis Current Active Problems Acute appendicitis with localized peritonitis (Acute) Procedures: Principal: laparoscopic appendectomy Hospital Course: 26yo healthy M admitted with 2 days of RLQ pain associated with diarrhea and vomiting, wbc 16 and acute appendicitis on CT. He was taken to the OR for laparoscopic appendectomy with findings of an enlarged, inflamed appendix, and has done well postop. He received two doses of perioperative Zosyn. He spiked a temp of 101.7 about 16H postop, but has been afebrile since. He is tolerating diet, ambulating, voiding, had BMs, and pain is controlled with oral pain meds, nonnarcotic today. He is discharged home with lifting restrictions to follow up in 2 weeks. Condition: Good - Instructions Diet, Activity, Other Instructions: Postoperative instructions: You had a laparoscopic appendectomy on 04/16/[address] Chace Rosales of [facility]. Resume your usual activities gradually, but no heavy exertion or lifting more than 10-15 pounds for 1 month. Sticky tapes on the incisions will fall off by themselves. You may shower daily, just pat the incision areas dry. Eat lightly at first, but advance to your usual diet as tolerated. Use bacitracin ointment and a band-aid on the small open skin spot on your abdomen until it heals over. For pain, use extra-strength Tylenol (1-2 tabs) and/or ibuprofen (400-600mg) every 6 hours as needed; it is ok to alternate every 3 hours between the two. Do not take more than 3000mg of acetaminophen in a day. Take medications as prescribed or indicated on the labeling. Call Dr. Rosales's office at [phone] for your postop appointment (Friday ~ 2 weeks after surgery). Call Dr. Rosales if you have: - increasing pain not responsive to pain medication - fever of 101F or higher - vomiting - unusual or increasing bleeding or drainage from wounds - increasing redness or swelling at wound sites - inability to urinate Also, see your PMD within a couple of weeks. Disposition: HOME - Home Medications Comprehensive Discharge Medication List: Ambulatory Orders NK [No Known Home Medication] 04/16/17 Tylenol 500mg 1-2 tabs every 6 hrs as needed for pain Ibuprofen 200mg 1-3 tabs every 6 hrs as needed for pain (over the counter)
[2017-04-18] MEDS ORDERED: RANITIDINE HCL 150 MG TABLET (FP) PO STA (09:46)
[2017-04-18] MEDS: DOCUSATE SODIUM 100 MG CAPSULE (FP) PO SCH (09:58)
[2017-04-18] MEDS ORDERED: BACITRACIN 0.9 GM PACKET TP ONE (10:30)
--- NOTE | 2017-04-18 11:56 | OP ---
DATE OF OPERATION: 04/16/2017 PREOPERATIVE DIAGNOSIS: Acute appendicitis with localized peritonitis. POSTOPERATIVE DIAGNOSIS: Acute appendicitis with localized peritonitis. PROCEDURE: Laparoscopic appendectomy. SURGEON: Chace Rosales MD ANESTHESIA: General endotracheal and local, 20 mL of 0.5% Marcaine. ESTIMATED BLOOD LOSS: 5 mL FLUIDS: 1500 mL of crystalloid. URINE OUTPUT: 200 mL SPECIMEN: Appendix to Pathology. FINDINGS: An enlarged and inflamed appendix. DISPOSITION: Stable and extubated to PACU. INDICATIONS FOR PROCEDURE: The patient is a 26-year-old healthy male who presented with 2 days of generalized abdominal discomfort associated with diarrhea initially and some element of anorexia, which the night before presentation became significant right lower quadrant pain associated with vomiting. Multiple episodes of emesis were experienced at home, prompting an emergency room visit. In the emergency room, his white count was 16, and a CAT scan showed an enlarged, inflamed appendix directed downward into the pelvis, without any abscess or free air. His exam was consistent with acute appendicitis with localized peritonitis. Risks, benefits, and alternatives of laparoscopic, possible open appendectomy were discussed with the patient including, but not limited to, bleeding, infection, injury to intraabdominal structures, staple line leak, and intraabdominal abscess. The patient has signed informed consent for the same and is brought to the operating room for surgery now. OPERATIVE TECHNIQUE: The patient is brought to the operating room and laid supine on the operating table. Sequential compression devices are applied to bilateral lower extremities, and Zosyn is given as preoperative antibiotic. After induction and intubation by Anesthesia, a Lr catheter is placed in the patient's bladder, which is removed at the end of the case, and his abdomen is clipped of hair, prepped and draped in sterile fashion. A small infraumbilical midline incision is made with a scalpel and carried into subcutaneous tissues with electrocautery until the abdominal wall fascia is identified, scored, and elevated with Eddie clamps. The peritoneum is entered bluntly with the tip of a clamp, and fingertip is used to ensure entry into the peritoneal cavity and the absence of any underlying adhesions. A stay suture of 0 Vicryl is then placed in figure-of-8 fashion in the fascia for later closure, and the 12-mm Jessica trocar inserted directly into the abdominal cavity and secured in place with the balloon. The abdomen was insufflated with carbon dioxide and laparoscope inserted to inspect the abdominal cavity. The patient was placed in Trendelenburg position and ultimately planed with the right side somewhat upward. Two additional 5-mm ports were placed in the left lower quadrant and suprapubic areas under direct vison, and the camera was switched to the left lower quadrant port. Two graspers were introduced through the ports and used to gently manipulate the omentum and small bowel medially and superiorly up away from the right lower quadrant. The cecum was also identified and gently rolled, revealing the enlarged and fattened and inflamed tip of the appendix extending down into the pelvis, which then came into view. The mesoappendix was grasped with a grasper and used to gently elevate the appendix. It was noted to curl somewhat at the base where it went to join the cecum. Ultimately, with some manipulation with the graspers, the appendix was able to be held such that the base where it joined the cecum was clearly visible, and a window in the mesoappendix was made with a [place] dissector in order to allow transection of the base of the appendix first. An Endo BJORN stapler with a 45 purple load was then introduced and used to transect the appendix at its base. The appendix was then re-grasped, and 60 cardenas load of the EndoGIA stapler was also used to transect the mesoappendix. The appendix was then placed in an Endo Catch bag and retrieved out the umbilical port site. The Jessica trocar and pneumoperitoneum were re-established and the operative field inspected. There was no bleeding from the staple lines noted. There was no fluid noted in the pelvis or in the right lower quadrant. I elected not to use the suction payroll benefits clerk. The omentum and small bowel were drawn back down toward the right lower quadrant. The omentum used to tuck over the operative area after the patient was placed back in neutral position. The 5-mm ports were then removed under direct vision, and the Jessica port with the camera removed last. The abdomen exsufflated of carbon dioxide. The stay suture at the umbilical site was tied to close the fascia there. Hemostasis was achieved in the port sites with electrocautery where needed, and local anesthetic was infiltrated into all 3 port sites. Actually, the first half of local anesthetic had been infiltrated prior to incision. The second half was now infiltrated into the port sites for additional effect. Skin was then closed with 4-0 Vicryl subcuticular sutures including a running at the umbilical site. Mastisol and Steri-Strips were placed over the incisions which were then dressed with gauze and Tegaderm. The Lr catheter was removed from the patient's bladder. Counts were correct at the end of the procedure. The patient was then awakened and extubated by Anesthesia. He was moved back to a stretcher and taken to the recovery room in stable condition, having tolerated the procedure well. Chace Rosales M.D. [id number]
--- NOTE | 2017-04-18 12:56 | PATH ---
Surgical Pathology Report Patient Name: ERMA STOKES Med. Rec. #: [id number] /Age/Gender: 1990 (Age: 26) / M Account: [id number] Location: [facility] MED/SURG Taken: 04/16/2017 Received: 04/17/2017 Reported: 04/18/2017 Physicians: Chace Rosales M.D. Specimen(s) Received APPENDIX Clinical History Acute appendicitis Final Diagnosis APPENDIX, APPENDECTOMY: ACUTE APPENDICITIS AND PERIAPPENDICITIS. Electronically Signed Chas Arenas M.D. Gross Description Received in formalin, labeled "appendix" is a 7.0 cm. in length vermiform appendix with a stapled margin of resection and moderate attached fat. The serosa is cardenas-dahl and smooth. Sectioning reveals a dilated lumen containing pus. The wall of the appendix averages 0.1 cm in thickness. [employer] sections are submitted in 2 cassettes. /04/17/2017 saudi04/17/2017
== END 2017-04-18 12:28 | disposition home or self-care (01) | DRG 225 ==
LOC: JER 05:33 → JASUSAT 11:26 → J8W 18:27
PROVIDERS: ADMIT Surgery; ATTEND Surgery
PROC: 0DTJ4ZZ Resection of Appendix, Percutaneous Endoscopic Approach (ICD-10-PCS; principal; 2017-04-16 12:00)
DX: K35.3 Acute appendicitis with localized peritonitis (principal); K59.00 Constipation, unspecified; R19.7 Diarrhea, unspecified; R10.31 Right lower quadrant pain
CPT/HCPCS: 36415; 74177-TC; 80053; 81003; 82150; 83690; 83735; 85025; 85610; 86850; 86900; 86901; 88304-TC; 94760; 99285-25; Q9967

== ENCOUNTER 2024-02-06 15:07 | Inpatient (IN) | payer OTHER ==
[2024-02-06] MEDS ORDERED: ACETAMINOPHEN INJECTION 100 ML IVPB ONE (15:29)
[2024-02-06] MEDS ORDERED: FAMOTIDINE 20 MG/50 ML IVPB 20 MG/50 ML MG IVPB ONE (15:29)
[2024-02-06] MEDS: LORazepam 2 MG/ML SDV VIAL IVPUSH STA (15:46)
[2024-02-06] MEDS: SODIUM CHLORIDE 1,000 ML IV STA (15:46)
[2024-02-06] MEDS: FAMOTIDINE 20 MG/50 ML IVPB 20 MG/50 ML MG IVPB ONE (15:47)
[2024-02-06] MEDS: ACETAMINOPHEN 1000 MG/100 ML BAG IVPB ONE (15:47)
[2024-02-06 15:54] LABS: HEMATOCRIT 49.5 % (35.4-49); HEMOGLOBIN 17.2 GM/dL (11.7-16.9); MCH 31.8 pg (25.7-33.7); MCHC 34.8 g/dl (32.0-35.9); MEAN CELL VOLUME 91.5 fl (80-96); MEAN PLT VOLUME 8.2 fl (7.5-11.1); PLATELET COUNT 189 10^3/uL (134-434); RDW 12.9 % (11.9-15.9); WHITE BLOOD COUNT 22.4 K/mm3 (4.0-10.0)
[2024-02-06 15:58] LABS: VENOUS BASE EXCESS 0.5 mmol/L (-2-2); VENOUS O2 SATURATION 26.6 % (70-80); VENOUS PCO2 33.3 mmHg (38-52); VENOUS PH 7.464 (7.310-7.410)
[2024-02-06 16:11] LABS: INR 1.29 (0.83-1.09); PROTHROMBIN TIME (PATIENT) 14.5 SEC (9.7-13.0)
[2024-02-06 16:13] LABS: ACTIVATED PTT 30.4 SECONDS (25.2-36.5)
[2024-02-06 16:17] LABS: POTASSIUM 3.4 mmol/L (3.5-5.1)
[2024-02-06 16:19] LABS: ALBUMIN 3.8 g/dl (3.4-5.0); CALCIUM 9.3 mg/dL (8.5-10.1)
[2024-02-06 16:20] LABS: BLOOD UREA NITROGEN 9.4 mg/dL (7-18)
[2024-02-06 16:22] LABS: CREATININE 1.4 mg/dL (0.55-1.3)
[2024-02-06 16:24] LABS: BILIRUBIN,TOTAL 1.5 mg/dL (0.2-1); TOT PROT 7.1 g/dl (6.4-8.2)
[2024-02-06 17:01] LABS: ANISOCYTOSIS 0; MACROCYTOSIS 0
[2024-02-06 17:47] LABS: URINE APPEARANCE CLEAR; URINE BILIRUBIN NEGATIVE (NEGATIVE); URINE COLOR YELLOW; URINE GLUCOSE (UA) NEGATIVE (NEGATIVE); URINE KETONE TRACE (NEGATIVE); URINE LEUK ESTERASE NEGATIVE (NEGATIVE); URINE NITRITE NEGATIVE (NEGATIVE); URINE PROTEIN NEGATIVE (NEGATIVE)
[2024-02-06] MEDS ORDERED: SODIUM CHLORIDE 1,000 ML IV STA (19:37)
[2024-02-06] MEDS ORDERED: PIPERACILLIN/TAZOB 3.375 GM 3.375 GM/50 ML BAG IVPB ONE (20:04)
[2024-02-06] MEDS: PIPERACILLIN/TAZOB 3.375 GM 3.375 GM in DEXTROSE 5%-WATER - 50 ML IVPB ONE (20:19)
[2024-02-06] MEDS: LACTATED RINGERS SOLUTION 1000 ML INFUS.BAG IV ONE (20:19)
[2024-02-06] MEDS ORDERED: morphine SULFATE 4 MG/ML VIAL ONE (20:43)
[2024-02-06] MEDS: morphine CARPU-JECT 4 MG/1 ML DISP.SYRIN IVPUSH ONE (20:48)
[2024-02-07] MEDS ORDERED: morphine SULFATE 4 MG/ML VIAL ONE (00:44)
[2024-02-07] MEDS ORDERED: KCL 10 MEQ IVPB 20 MEQ/200 ML INFUS.BAG IVPB ONE (00:44)
[2024-02-07] MEDS: LACTATED RINGERS SOLUTION 1,000 ML/1,000 ML INFUS.BAG IV SCH (01:10)
[2024-02-07] MEDS: KCL 10 MEQ IVPB 10 MEQ/100 ML INFUS.BAG IVPB SCH (01:10)
[2024-02-07] MEDS ORDERED: PIPERACILLIN/TAZOB 3.375 GM 3.375 GM in DEXTROSE 5%-WATER - 50 ML IVPB SCH (02:00)
[2024-02-07] MEDS: PIPERACILLIN/TAZOB 3.375 GM 3.375 GM in DEXTROSE 5%-WATER - 50 ML IVPB SCH ×2 (02:23→19:23)
[2024-02-07 05:09] VITALS: BMI 30.3
[2024-02-07] MEDS ORDERED: LACTATED RINGERS SOLUTION 1,000 ML/1,000 ML INFUS.BAG IV SCH ×2 (07:17→07:54)
[2024-02-07 08:53] LABS: INR 1.35 (0.83-1.09); PROTHROMBIN TIME (PATIENT) 15.4 SEC (9.7-13.0)
[2024-02-07 08:56] LABS: ACTIVATED PTT 28.1 SECONDS (25.2-36.5)
[2024-02-07 09:01] LABS: HEMATOCRIT 40.4 % (35.4-49); MCH 32.1 pg (25.7-33.7); MCHC 34.7 g/dl (32.0-35.9); MEAN CELL VOLUME 92.6 fl (80-96); MEAN PLT VOLUME 8.9 fl (7.5-11.1); PLATELET COUNT 159 10^3/uL (134-434); RBC 4.36 M/mm3 (4.00-5.60); RDW 12.4 % (11.9-15.9); WHITE BLOOD COUNT 20.5 K/mm3 (4.0-10.0)
[2024-02-07 09:09] LABS: POTASSIUM 3.2 mmol/L (3.5-5.1)
[2024-02-07 09:27] LABS: CALCIUM 8.3 mg/dL (8.5-10.1)
[2024-02-07 09:28] LABS: MAGNESIUM 1.5 mg/dL (1.8-2.4)
[2024-02-07 09:31] LABS: CREATININE 0.9 mg/dL (0.55-1.3)
[2024-02-07] MEDS: D5-LR+20 MEQ KCL - 20 MEQ/1,000 ML INFUS.BAG IV SCH ×2 (10:34→14:21)
[2024-02-07] MEDS: ACETAMINOPHEN 1000 MG/100 ML BAG IVPB SCH (10:34)
[2024-02-07] MEDS ORDERED: MAGNESIUM SULF 50% (8.12 MEQ/2 ML-1 GM VIAL) ONE (14:34)
[2024-02-07] MEDS: MAGNESIUM 2GM/50ML STERILE WATER IVPB IVPB ONE ×2 (14:36→15:20)
[2024-02-07] MEDS: AMINO ACIDS 4.25%/D5W 1,000 ML IV SCH (20:00)
[2024-02-08 08:12] LABS: POTASSIUM 3.8 mmol/L (3.5-5.1)
[2024-02-08 08:14] LABS: BASO % 0.2 % (0-2.0); EOS % 0.4 % (0-4.5); HEMOGLOBIN 14.4 GM/dL (11.7-16.9); LYMPH % 8.1 % (8-40); MCH 32.1 pg (25.7-33.7); MCHC 35.2 g/dl (32.0-35.9); MEAN CELL VOLUME 91.3 fl (80-96); MEAN PLT VOLUME 8.5 fl (7.5-11.1); MONO % 8.2 % (3.8-10.2); NEUT % 83.1 % (42.8-82.8); PLATELET COUNT 192 10^3/uL (134-434); RBC 4.49 M/mm3 (4.00-5.60); RDW 12.5 % (11.9-15.9); WHITE BLOOD COUNT 15.1 K/mm3 (4.0-10.0)
[2024-02-08 08:23] LABS: CALCIUM 8.4 mg/dL (8.5-10.1)
[2024-02-08 08:24] LABS: BLOOD UREA NITROGEN 9.9 mg/dL (7-18); MAGNESIUM 2.2 mg/dL (1.8-2.4)
[2024-02-08 08:27] LABS: CREATININE 0.8 mg/dL (0.55-1.3); PHOSPHOROUS 2.9 mg/dL (2.5-4.9)
[2024-02-08 08:28] LABS: BILIRUBIN,TOTAL 1.1 mg/dL (0.2-1); TOT PROT 6.3 g/dl (6.4-8.2)
[2024-02-08 08:37] LABS: ALBUMIN 2.8 g/dl (3.4-5.0)
[2024-02-08] MEDS: ENOXAPARIN NA (PORCINE) 40 MG/0.4 ML DISP.SYRIN SQ SCH (09:24)
[2024-02-08] MEDS: KETOROLAC TROMETHAMINE 30 MG/1 ML VIAL IM SCH (11:18)
[2024-02-08] MEDS: KETOROLAC TROMETHAMINE 30 MG/1 ML VIAL IVPUSH SCH (11:22)
[2024-02-08 14:46] VITALS: RESP 18
[2024-02-09 09:24] LABS: HEMATOCRIT 41.9 % (35.4-49); HEMOGLOBIN 14.8 GM/dL (11.7-16.9); MCH 32.7 pg (25.7-33.7); MCHC 35.4 g/dl (32.0-35.9); MEAN CELL VOLUME 92.4 fl (80-96); MEAN PLT VOLUME 8.4 fl (7.5-11.1); PLATELET COUNT 234 10^3/uL (134-434); RBC 4.53 M/mm3 (4.00-5.60); RDW 12.6 % (11.9-15.9); WHITE BLOOD COUNT 8.1 K/mm3 (4.0-10.0)
[2024-02-09 09:45] LABS: POTASSIUM 3.6 mmol/L (3.5-5.1)
[2024-02-09 09:50] LABS: CALCIUM 8.8 mg/dL (8.5-10.1)
[2024-02-09 09:51] LABS: BLOOD UREA NITROGEN 11.5 mg/dL (7-18)
[2024-02-09 09:53] LABS: CREATININE 0.8 mg/dL (0.55-1.3)
[2024-02-09 09:54] LABS: BILIRUBIN,TOTAL 0.8 mg/dL (0.2-1); TOT PROT 6.3 g/dl (6.4-8.2)
[2024-02-10 07:53] LABS: HEMATOCRIT 42.2 % (35.4-49); HEMOGLOBIN 14.5 GM/dL (11.7-16.9); MCH 31.8 pg (25.7-33.7); MCHC 34.3 g/dl (32.0-35.9); MEAN CELL VOLUME 92.9 fl (80-96); MEAN PLT VOLUME 8.1 fl (7.5-11.1); PLATELET COUNT 244 10^3/uL (134-434); RBC 4.54 M/mm3 (4.00-5.60); RDW 12.4 % (11.9-15.9)
[2024-02-10 08:03] LABS: POTASSIUM 3.9 mmol/L (3.5-5.1)
[2024-02-10 08:15] LABS: CALCIUM 8.7 mg/dL (8.5-10.1)
[2024-02-10 08:16] LABS: ALBUMIN 2.8 g/dl (3.4-5.0)
[2024-02-10 08:19] LABS: CREATININE 0.8 mg/dL (0.55-1.3)
[2024-02-10 08:20] LABS: BILIRUBIN,TOTAL 0.9 mg/dL (0.2-1); TOT PROT 6.2 g/dl (6.4-8.2)
[2024-02-10] MEDS ORDERED: ACETAMINOPHEN 500 MG TABLET (FP) PO PRN (11:06)
[2024-02-11 04:32] VITALS: PULSE 72
[2024-02-11 07:56] LABS: HEMOGLOBIN 16.2 GM/dL (11.7-16.9); MCH 32.8 pg (25.7-33.7); MCHC 35.9 g/dl (32.0-35.9); MEAN CELL VOLUME 91.4 fl (80-96); PLATELET COUNT 310 10^3/uL (134-434); RBC 4.92 M/mm3 (4.00-5.60); RDW 12.7 % (11.9-15.9); WHITE BLOOD COUNT 9.3 K/mm3 (4.0-10.0)
[2024-02-11 07:58] LABS: POTASSIUM 3.8 mmol/L (3.5-5.1)
[2024-02-11 08:07] LABS: ALBUMIN 3.2 g/dl (3.4-5.0); BLOOD UREA NITROGEN 10.5 mg/dL (7-18)
[2024-02-11 08:10] LABS: CREATININE 0.9 mg/dL (0.55-1.3)
[2024-02-11 08:11] LABS: BILIRUBIN,TOTAL 0.9 mg/dL (0.2-1)
[2024-02-11 08:12] LABS: TOT PROT 7.1 g/dl (6.4-8.2)
[2024-02-11] MEDS ORDERED: KETOROLAC TROMETHAMINE 15 MG/ML VIAL IVPUSH SCH (10:00)
[2024-02-11] MEDS: metroNIDAZOLE 250 MG TABLET PO SCH (11:14)
[2024-02-11] MEDS: levoFLOXacin 750 MG TABLET PO SCH (11:15)
[2024-02-11 12:20] VITALS: BP 120/68; TEMP 98.4
== END 2024-02-11 13:39 | disposition home or self-care (01) | DRG 872 ==
LOC: JER 15:07 → JERBED 20:42 → J6S 02-07 04:45
PROVIDERS: ADMIT Internal Medicine; ATTEND Internal Medicine
DX: A41.9 Sepsis, unspecified organism (principal); K57.20 Diverticulitis of large intestine with perforation and abscess without bleeding; N17.9 Acute kidney failure, unspecified; E87.6 Hypokalemia; E83.42 Hypomagnesemia
CPT/HCPCS: 36415; 74177-TC; 80048; 80053; 81003; 82803; 83605; 83690; 83735; 84100; 84443; 85025; 85027; 85610; 85730; 86140; 86850; 86900; 86901; 87040; 87086; 93005; 93010; 99285-25; J0131

== ENCOUNTER 2024-05-11 04:26 | Day surgery (SDC) | payer OTHER ==
[2024-04-29 15:31] VITALS: BMI 29.0
[2024-05-11 13:12] VITALS: BP 116/54; PULSE 65; RESP 18; TEMP 98.2
== END 2024-05-11 11:00 | disposition home or self-care (01) ==
LOC: JASU-ENDO 04:26
PROVIDERS: ATTEND Internal Medicine Gastroenterology
PROC: 0DBC8ZX Excision of Ileocecal Valve, Via Natural or Artificial Opening Endoscopic, Diagnostic (ICD-10-PCS; 2024-05-11)
PROC: 0DBN8ZX Excision of Sigmoid Colon, Via Natural or Artificial Opening Endoscopic, Diagnostic (ICD-10-PCS; 2024-05-11)
PROC: 0DBP8ZX Excision of Rectum, Via Natural or Artificial Opening Endoscopic, Diagnostic (ICD-10-PCS; 2024-05-11)
PROC: 0DBN8ZX Excision of Sigmoid Colon, Via Natural or Artificial Opening Endoscopic, Diagnostic (ICD-10-PCS; principal; 2024-05-11 10:00)
DX: Z12.11 Encounter for screening for malignant neoplasm of colon (principal); D12.8 Benign neoplasm of rectum; K63.5 Polyp of colon; K57.30 Diverticulosis of large intestine without perforation or abscess without bleeding; Z87.19 Personal history of other diseases of the digestive system
CPT/HCPCS: 88305-TC